=== PATIENT | male | born 1985 | race Caucasian/White ===

== ENCOUNTER → 2018-06-02 10:05 | Outpatient (CLI) | payer OTHER, SELFPAY ==
[2018-06-02 11:07] LABS: Absolute Lymphocyte Count 1.65 X10^3/ul (0.83-4.51); Absolute Neutrophil Count 2.6 X10^3/uL (2.0-7.7); Basophil# 0.01 X10^3/uL; Basophil% 0.2 % (0-1); Eosinophil# 0.09 X10^3/uL; Eosinophils% 1.9 % (0-5); Hematocrit 44.4 % (40-54); Hemoglobin 15.7 g/dl (13.0-16.5); Lymphocyte # 1.65 X10^3/ul (4.0); Lymphocyte % 35.6 % (19-41); Mean Corp Hgb Conc 35.4 g/gl (32-36); Mean Corpuscular Volume 84.7 fL (80-94); Mean Platelet Vol. 10.8 fl (6.2-12.0); Monocyte# 0.33 X10^3/uL; Monocyte% 7.1 % (0-10); Neutrophil # 2.55 X10^3/uL (2.7-7.7); Platelet Count 213 K/mm3 (150-450); RBC Distribution Width CV 12.3 % (11.6-14.6); RBC Distribution Width SD 37.5 fl (35.1-43.9); Red Blood Count 5.24 M/mm3 (4.6-6.2); White Blood Count 4.6 K/mm3 (4.4-11.0)
[2018-06-02 11:10] LABS: POSITIVE COUNT NO; POSITIVE DIFFERENTIAL NO; POSITIVE MORPHOLOGY NO
[2018-06-02 11:50] LABS: ALB/GLOB Ratio 1.4 RATIO (0.9-2.4); AST(SGOT) 25 U/L (15-37); Alanine Aminotransfer ALT/SGPT 36 U/L (16-61); Alkaline Phosphatase 60 U/L (45-117); Anion Gap 7 (5-15); BUN 20 mg/dL (7-18); BUN/Creat Ratio 16.4 RATIO (10-20); Calcium,Total 8.5 mg/dL (8.5-10.1); Chloride 108 mmol/L (98-107); Creatinine, Serum 1.22 mg/dL (0.70-1.30); EST Glomerular Filtration Rate 73 mL/min (>60); Est Glom Filt Rate - Afr Amer 89 mL/min (>60); Free T3 3.1 pg/mL (2.18-3.98); Globulin 2.9 g/dL (2.2-4.2); Glucose 91 mg/dL (74-106); PSA,Total - Annual Screen 0.34 ng/mL (0.00-4.00); Protein, Total 6.9 g/dL (6.4-8.2); Sodium Level 142 mmol/L (136-145); T4 Free Direct 1.01 ng/dL (0.76-1.46); Thyroid Stim Hormone (TSH) 1.53 uIU/mL (0.358-3.74)
[2018-06-06 13:57] LABS: Testosterone, Free 14.36 ng/dL (5.00-21.00)
[2018-06-07 08:48] LABS: Testosterone, % Free 2.56 % (1.50-4.20); Testosterone, Total 561 ng/dL (264-916)
[2018-06-12 09:18] LABS: HIV-1 RNA by PCR, Quant. < 20 copies/mL (.)
== END ==
PROVIDERS: Internal Medicine Endocrinology, Diabetes & Metabolism; Family Provider Family Medicine; PCP Family Medicine; Visit Provider Internal Medicine Infectious Disease
DX: Z77.21 Contact with and (suspected) exposure to potentially hazardous body fluids (principal); E04.2 Nontoxic multinodular goiter; E23.0 Hypopituitarism; Z12.5 Encounter for screening for malignant neoplasm of prostate
CPT/HCPCS: 36415; 80053; 84153; 84402; 84403; 84439; 84443; 84481; 85025; 87536; G0103

== ENCOUNTER → 2018-12-02 11:38 | Outpatient (CLI) | payer OTHER, SELFPAY ==
[2018-12-02 12:23] LABS: Absolute Lymphocyte Count 1.99 X10^3/ul (0.83-4.51); Absolute Neutrophil Count 2.8 X10^3/uL (2.0-7.7); Basophil# 0.01 X10^3/uL; Basophil% 0.2 % (0-1); Eosinophil# 0.17 X10^3/uL; Hematocrit 46.3 % (40-54); Hemoglobin 16.4 g/dl (13.0-16.5); Lymphocyte # 1.99 X10^3/ul (4.0); Lymphocyte % 35.7 % (19-41); Mean Corp Hgb Conc 35.4 g/gl (32-36); Mean Corpuscular Hgb 29.7 pg (27.0-32.0); Mean Corpuscular Volume 83.9 fL (80-94); Mean Platelet Vol. 10.4 fl (6.2-12.0); Monocyte# 0.58 X10^3/uL; Monocyte% 10.4 % (0-10); Neutrophil # 2.82 X10^3/uL (2.7-7.7); Neutrophil % 50.5 % (47-70); Platelet Count 232 K/mm3 (150-450); RBC Distribution Width CV 12.5 % (11.6-14.6); RBC Distribution Width SD 38.1 fl (35.1-43.9); Red Blood Count 5.52 M/mm3 (4.6-6.2); White Blood Count 5.6 K/mm3 (4.4-11.0)
[2018-12-02 12:25] LABS: POSITIVE COUNT NO; POSITIVE DIFFERENTIAL NO; POSITIVE MORPHOLOGY NO
[2018-12-02 13:13] LABS: ALB/GLOB Ratio 1.2 RATIO (0.9-2.4); AST(SGOT) 30 U/L (15-37); Alanine Aminotransfer ALT/SGPT 47 U/L (16-61); Alkaline Phosphatase 74 U/L (45-117); Anion Gap 8 (5-15); BUN 18 mg/dL (7-18); BUN/Creat Ratio 13.6 RATIO (10-20); Chloride 106 mmol/L (98-107); Creatinine, Serum 1.32 mg/dL (0.70-1.30); EST Glomerular Filtration Rate 67 mL/min (>60); Est Glom Filt Rate - Afr Amer 81 mL/min (>60); Free T3 3.2 pg/mL (2.18-3.98); Globulin 3.3 g/dL (2.2-4.2); Glucose 88 mg/dL (74-106); PSA,Total - Annual Screen 0.37 ng/mL (0.00-4.00); Protein, Total 7.3 g/dL (6.4-8.2); Sodium Level 141 mmol/L (136-145); T4 Free Direct 1.05 ng/dL (0.76-1.46); Thyroid Stim Hormone (TSH) 2.38 uIU/mL (0.358-3.74)
[2018-12-05 12:46] LABS: Testosterone, % Free 3.59 % (1.50-4.20); Testosterone, Total 479 ng/dL (264-916)
--- OUTSIDE RECORDS SUMMARY | 2019-02-06 03:11 | XMS RPT_ITS ---
:1985 Author Organization OHIP Care Team Providers Name Role Phone Robbi Mckeon Attending Unavailable Joaquín Conklin Primary [facility] Unavailable Tamika Mcgowan Attending Unavailable Joaquín Conklin [facility] Unavailable Raghunathan, Bhavani N. Attending Unavailable Ragadeel, Bhavani N. Referring Unavailable Rubin, Joaquín Primary Care Unavailable Rubin, Joaquín Primary Care Unavailable Stew Bazano Attending Unavailable Joaquín Raman Attending Unavailable Joaquín Raman Referring Unavailable Rubin, Joaquín Primary Care Unavailable Raghunathan, Bhavani N. Consulting Unavailable ASSESSMENT, HEALTH RISK Attending Unavailable Rubin, Joaquín Primary Care Unavailable ASSESSMENT, HEALTH RISK Attending Unavailable Rubin, Joaquín Primary Care Unavailable DR. 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 [facility] E23.0(ICD-10) Hospital Repository 06/02/2018 Unknown Z77.21 - Contact with Danisha, Katharina Nelson and (suspected) [facility] exposure to Hospital potentially hazardous Repository body fluids / Z77.21(ICD-10) PROCEDURES PROCEDURES No Procedure Records FoundRESULTS RESULTS HEPATITIS C,RNA PCR Collected: 12/02/2018 Status: F Source: [facility] VIRAL LOAD 11:44 AM [facility] REPOSITORY TYPE CODE TESTS RESULT OUT OF RANGE REFERENCE UNITS LAB L7000.7100 . IU/mL HCV Normal HCV Not Detected QT PCR LAB L7000.7350 . Test Normal HCV not performed log 10 LAB L7000.7500 . Normal TEST Comment INFO: Result Comment: The quantitative range of this assay is 15 IU/mL to 100 million IU/mL. Performed at: - [facility] [id number] [employer] Rental Clerk: Rachel Werner MD, Phone: [phone] Performed By: #### L7000.7000 #### [facility] (refer to report for specific site) refer to report for address and phone number CBC W/DIFF, AUTOMATED Collected: 12/02/2018 Status: F Source: [facility] 11:43 AM [facility] REPOSITORY TYPE CODE TESTS RESULT OUT OF RANGE REFERENCE UNITS LAB L100.1000 4.4-11.0 K/mm3 Normal WBC 5.6 LAB L100.1200 4.6-6.2 M/mm3 Normal RBC 5.52 LAB L100.1300 13.0-16.5 g/dl Normal HGB 16.4 LAB L100.1400 40-54 % Normal HCT 46.3 LAB L100.1500 80-94 fL Normal MCV 83.9 LAB L100.1600 27.0-32.0 pg Normal MCH 29.7 LAB L100.1700 32-36 g/gl Normal MCHC 35.4 LAB L100.1810 11.6-14.6 % Normal RDW CV 12.5 LAB L100.1820 35.1-43.9 fl Normal RDW SD 38.1 LAB L100.1900 150-450 K/mm3 Normal PLT 232 LAB L100.2000 6.2-12.0 fl Normal MPV 10.4 LAB L100.2100 47-70 % Normal NEUT% 50.5 LAB L100.2200 19-41 % Normal LY% 35.7 LAB L100.2300 0-10 % High MONO% 10.4 LAB L100.2400 0-5 % Normal EO% 3.0 LAB L100.2500 0-1 % Normal BASO% 0.2 LAB L100.2550 0.0-0.9 % Normal IM GRAN % 0.200 Result Comment: IG% - Immature Granulocytes (promyelocytes, myelocytes and metamyelocytes) > 1% indicates that a LEFT SHIFT is Present. LAB L100.2620 2.0-7.7 X10 3/uL Normal Absolute Neut 2.8 LAB L100.2720 0.83-4.51 X10 3/ul Normal Absolute Lymph 1.99 Performed By: #### L100.0100 #### [facility] [address] [place], [address] COMPREHENSIVE METABOLIC Collected: 12/02/2018 Status: F Source: [facility] 11:43 AM [facility] REPOSITORY Order Comment: Has Patient had X-rays with Contrast this admission? N TYPE CODE TESTS RESULT OUT OF RANGE REFERENCE UNITS LAB L501.0100 74-106 mg/dL Normal GLU 88 Result Comment: Please note revised GLUCOSE reference range effective 2017. LAB L501.1000 7-18 mg/dL Normal BUN 18 LAB L501.1100 0.70-1.30 mg/dL High CREAT,SERUM 1.32 Result Comment: The validity of the calculated GFR AND GFRAA in patients over 70 years has not been determined. Clinical correlation is essential. LAB L501.1110 >60 mL/min Normal EST GFR 67 Result Comment: Non- GFR Calc LAB L501.1115 >60 mL/min Normal EST GFR - AA 81 Result Comment: GFR Calc LAB L501.1300 10-20 RATIO Normal BUN/CRE 13.6 LAB L501.1500 6.4-8.2 g/dL T Normal PROT 7.3 LAB L501.1800 3.2-5.0 g/dL Normal ALB 4.0 LAB L501.1950 2.2-4.2 g/dL Normal GLOB 3.3 LAB L501.2000 0.9-2.4 RATIO Normal A/G 1.2 LAB L501.2200 8.5-10.1 mg/dL CA Normal 9.0 LAB L501.4100 15-37 U/L Normal AST 30 LAB L501.4305 45-117 U/L Normal ALK P 74 LAB L501.4405 16-61 U/L Normal ALT 47 LAB L501.4600 0.20-1.00 mg/dL T Normal BILI 0.70 LAB L501.5300 136-145 mmol/L NA Normal 141 LAB L501.5600 3.5-5.1 mmol/L K Normal 4.0 LAB L501.5900 98-107 mmol/L CL Normal 106 LAB L501.6100 21.0-32.0 mmol/L Normal CO2 27.0 LAB L501.6200 5-15 Normal GAP 8 Performed By: #### L500.4050, L501.87786, L501.9520, L501.9910, L506.0400 #### [facility] [address] [place], [place], [address] FREE T3 Collected: 12/02/2018 Status: F Source: [facility] 11:43 AM [facility] REPOSITORY Order Comment: Has Patient had X-rays with Contrast this admission? N TYPE CODE TESTS RESULT OUT OF RANGE REFERENCE UNITS LAB L501.77090 2.18-3.98 pg/mL Normal FREE T3 3.2 Performed By: #### L500.4050, L501.06780, L501.9520, L501.9910, L506.0400 #### [facility] [address] [place], [address] THYROID STIM HORMONE Collected: 12/02/2018 Status: F Source: [facility] (TSH) 11:43 AM [facility] REPOSITORY Order Comment: Has Patient had X-rays with Contrast this admission? N TYPE CODE TESTS RESULT OUT OF RANGE REFERENCE UNITS LAB L501.9520 0.358-3.74 uIU/mL Normal TSH 2.38 Performed By: #### L500.4050, L501.92911, L501.9520, L501.9910, L506.0400 #### [facility] [address] [place], [place], [id number] PSA,TOTAL - ANNUAL Collected: 12/02/2018 Status: F Source: [facility] SCREEN 11:43 AM [facility] REPOSITORY Order Comment: Has Patient had X-rays with Contrast this admission? N TYPE CODE TESTS RESULT OUT OF RANGE REFERENCE UNITS LAB L501.9910 0.00-4.00 ng/mL Normal PSA,TOT 0.37 SCREEN Result Comment: This test was performed using the TPSA assay method for the Rivono chemistry system. Values obtained with different assay methods cannot be used interchangably. When changing PSA assays in the course of monitoring a patient, additional sequential testing should be carried out to confirm baseline values. Performed By: #### L500.4050, L501.51514, L501.9520, L501.9910, L506.0400 #### [facility] [address] [place], [address] T4 FREE DIRECT Collected: 12/02/2018 Status: F Source: [facility] 11:43 AM [facility] REPOSITORY Order Comment: Has Patient had X-rays with Contrast this admission? N TYPE CODE TESTS RESULT OUT OF RANGE REFERENCE UNITS LAB L506.0400 0.76-1.46 ng/dL Normal T4 FREE 1.05 DIRECT Performed By: #### L500.4050, L501.34425, L501.9520, L501.9910, L506.0400 #### [facility] [address] [place], [address] TESTOSTERONE, TOTAL / Collected: 12/02/2018 Status: F Source: [facility] FREE 11:43 AM [facility] REPOSITORY Order Comment: Has Patient had X-rays with Contrast this admission? N TYPE CODE TESTS RESULT OUT OF RANGE REFERENCE UNITS LAB L3100.5320 264-916 ng/dL Normal 479 TESTOSTER,TO SHA Result Comment: Adult male reference interval is based on a population of healthy nonobese males (BMI <30) between 19 and 39 years old. Maria Teresa et.al. JCEM 2017,102;8446-4560. PMID: [id number]. LAB L3100.5340 5.00-21.00 ng/dL TESTOSTER,FREE Normal 17.20 LAB L3100.5360 1.50-4.20 % TESTOSTER %FREE Normal 3.59 Result Comment: Performed at: - [facility] [address] [id number] [employer] Visual Equipment Rental Clerk: Arnoldo Sagastume PhD, Phone: [phone] Performed at: [facility] [id number] [employer] Rental Clerk: Rachel Werner MD, Phone: [phone] Performed By: #### L3100.5310 #### [facility] (refer to report for specific site) refer to report for address and phone number FINAL SURGICAL Observed: 10/05/2018 Status: F Source: [facility] PATHOLOGY REPORT 11:29 AM [facility] REPOSITORY . Pathology Reports Accession: Collected Date/Time: Received Date/Time: Pathologist: [id number] 10/05/2018 11:29 EST 10/06/2018 09:07 MD MARIANNA ZHONG Final Surgical Pathology Report DIAGNOSIS: DISTAL ESOPHAGUS, BIOPSY -- SQUAMOUS ESOPHAGEAL MUCOSA WITH NO HISTOPATHOLOGIC CHANGES. COMMENT: KEN Roche#[id number] CLINICAL INFORMATION: Procedure: EGD with biopsy distal esophagus Preoperative diagnosis: esophageal stricture Postoperative diagnosis: same, chronic reflux SPECIMEN: A ARGENIS BX- DISTAL ESOPHAGUS - CHRONIC REFLUX GROSS DESCRIPTION: Received in formalin labeled distal esophagus biopsy are 2 semi translucent white tissue fragments, 0.3 and 0.4 cm. TS -1 Dictated by Radha HA ([facility]) MICROSCOPIC DESCRIPTION: Slides reviewed. Electronically Signed by Pathology Report verified by [facility] Electronically signed by MARIANNA JI MD Sign out Date: 10/08/2018 14:29 Performing Lab: [facility], [address] [place] [address] [place] Performed By: #### SPFR #### [place] [address] ESTABLISHED VISIT Observed: 10/04/2018 Status: UNK Source: [facility] ([facility]) 3:59 PM [facility]OS[facility] REPOSITORY Chief Complaint Chronic gastroesophageal reflux disease History of Present Illness 32-year-old male presents to undergo upper endoscopy regarding chronic reflux Review of Systems Gen.: Denies fever or weight loss Cardiovascular: Denies chest pain or palpitations Pulmonary: Denies shortness of breath or coughing Gastrointestinal: Denies present abdominal pain or distention 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) Obesity (278.00) (E66.9) Past Medical History History of gastroesophageal reflux (GERD) (V12.79) (Z87.19) Surgical History Denied: History of Colonoscopy [facility] History of Esophagogastroduodenoscopy With Biopsy [id number] Family History Family history of depression (V17.0) (Z81.8) Family history of osteoarthritis (V17.89) (Z82.69) No pertinent family history Denied: Family history of colon cancer Social History Daily caffeine consumption 1 CUP PER DAY History of body piercing (V45.89) (Z98.890) EARS Denied: History of tattoo Never smoked cigarettes (V49.89) (Z78.9) No illicit drug use Rarely consumes alcohol (V49.89) (Z78.9) Allergies No Known Drug Allergies Recorded By: Bernard Sanchez; 08/11/2018 7:37:14 AM Current Meds PriLOSEC 40 MG CPDR (Omeprazole); TAKE 1 CAPSULE ONCE DAILY; Therapy: (Recorded:54Mdb0123) to Recorded Dispense: 0 Days ; #: Sufficient Capsule Delayed Release; Refill: 0;For: Gastroesophageal reflux disease with esophagitis; SHADI = N; Record; Last Updated By: Jazmyn Sims; 08/11/2018 10:21:00 AM Testosterone Cypionate 100 MG/ML Intramuscular Solution; Therapy: (Recorded:35Jcj5549) to Recorded Dispense: 0 Days ; #: Sufficient ML; Refill: 0; SHADI = N; Record; Last Updated By: Annamarie Grayson; 08/11/2018 8:40:59 AM Physical Exam Gen.: Awake and oriented Cardiovascular: Regular without murmur Pulmonary: Clear anteriorly Abdomen: Soft, nondistended Provider Impressions Impression: Chronic reflux Recommendations Upper endoscopy is recommended. The procedure and sedation were discussed including but not limited to risk of bleeding, perforation and reaction to medication. The office endoscopy forms were reviewed and signed. The patient was instructed to bring someone to drive home after the test. All the patient's questions were answered. Signatures Electronically signed by : Daksha Whitehead DO; Oct 04 2018 3:59PM EST (Author) INITIAL VISIT Observed: 08/11/2018 Status: UNK Source: [place] (GASTROENTEROLOGY) 10:29 AM HOSPITALS REPOSITORY Chief Complaint Chronic GERD History of Present Illness 32-year-old male presents today referred by Shannon Colon NP for chronic reflux. Patient reports chronic heartburn for 5+ years. He was previously taking Protonix 20 mg once daily and discontinued thi s and began taking Prilosec 40 mg daily roughly 3 years ago. EGD in 2012 revealed reflux esophagitis but no evidence of Puente's esophagus. Family history is significant for esophageal cancer. Patient has seen an ENT specialist several times, most recently 6 months ago, and has undergone 2-3 laryngoscopies ; each of these revealing visible upper esophageal irritation. Patient states that the Prilosec controls his heartburn and he has attempted to taper off of this in the past with a quick return of symptoms. He denies dysphagia or odynophagia but does describe a globus pharyngeus located in his upp er esophagus. This is constant but typically worsened after eating or taking his medications. He states that he had a modified barium swallow as well as a barium esophagram earlier this year at [facility]. Per patient, these both were normal. He does report feeling full very quickly and states that it feels as though his stomach is not emptying. He explains that he will still feel full in the mo rning when he wakes up. He denies nausea, vomiting, or a decrease in appetite. Patient was previously taking dicyclomine 20 mg as needed for bowel spasm but is no longer taking this as he is no longer e xperiencing abdominal discomfort. He states that his are regular and unchanged without evidence of blood. Review of Systems Const: Reports fatigue but denies fever and weight loss. CV: Denies chest pain, pacemaker, palpitations and valvular heart disease. Resp: Denies cough, sleep apnea, SOB and snoring. GI: Denies symptoms other than stated above. Musculo: Denies joint pain and muscle pain. Skin: Denies hives and rash. Neuro: Denies seizures and stroke. Psych: Denies anxiety and depression. Endocrine: Denies intolerance to cold, hot flashes and impaired glucose tolerance. Viktor/Lymph: Denies anemia, blood transfusions, chemotherapy, enlarged lymph nodes and radiation treatment of any kind. 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) Obesity (278.00) (E66.9) Past Medical History History of gastroesophageal reflux (GERD) (V12.79) (Z87.19) Surgical History Denied: History of Colonoscopy [facility] History of Esophagogastroduodenoscopy With Biopsy [id number] Family History Family history of depression (V17.0) (Z81.8) Family history of osteoarthritis (V17.89) (Z82.69) No pertinent family history Denied: Family history of colon cancer Social History Daily caffeine consumption 1 CUP PER DAY History of body piercing (V45.89) (Z98.890) EARS Denied: History of tattoo Never smoked cigarettes (V49.89) (Z78.9) No illicit drug use Rarely consumes alcohol (V49.89) (Z78.9) Allergies No Known Drug Allergies Recorded By: Bernard Sanchez; 08/11/2018 7:37:14 AM Current Meds PriLOSEC 40 MG CPDR; TAKE 1 CAPSULE ONCE DAILY; Therapy: (Recorded:93Zsq0049) to Recorded Dispense: 0 Days ; #: Sufficient Capsule Delayed Release; Refill: 0;For: Gastroesophageal reflux disease with esophagitis; SHADI = N; Record; Last Updated By: Jazmyn Sims; 08/11/2018 10:21:00 AM Testosterone Cypionate 100 MG/ML Intramuscular Solution; Therapy: (Recorded:11Aug2018) to Recorded Dispense: 0 Days ; #: Sufficient ML; Refill: 0; SHADI = N; Record; Last Updated By: Annamarie Grayson; 08/11/2018 8:40:59 AM Vitals Vital Signs Recorded: 11Aug2018 08:51AM Heart Rate80 Sknxjixx447 Selmmazyh77 Height5 ft 11 in Ixvaeg480 lb BMI Xvmrfbktpc49.75 BSA Calculated2.29 Physical Exam Const: Vital signs reviewed. ENMT: Oral mucosa moist with no thrush and no mucositis. Neck: Supple and symmetric. Thyroid is normal in size and texture. Resp: Respiration rate is normal. Clear to auscultation. CV: Rhythm is regular. No heart murmur appreciated. Carotids 2+ and equal bilaterally, without bruits. Femorals 2+ and equal bilaterally, without bruits. Abdomen: Positive bowel sounds in all quadrants. No bruits. Normal to percussion. Palpation of the abdomen reveals softness but no tenderness, distension or fluid wave. No abdominal masses. No hernias. No palpable hepatosplenomegaly. Anus/Perineum/Rectum: Exam deferred. Lymph: No visible or palpable cervical lymphadenopathy. Inguinal nodes not palpable. Skin: Dry and warm with no nodularity or rash. Psych: Affect is normal. Alert and oriented x3. Neuro: Cranial nerves intact. No focal motor defects. Results/Data 1. EGD 10/03/13: Normal esophagus, stomach, duodenum. Biopsy suggestive of reflux esophagitis but no evidence of Puente's esophagus. Negative CLOtest. 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) Gastroesophageal reflux disease with esophagitis (530.11) (K21.0) Early satiety (780.94) (R68.81) Orders Gastroesophageal reflux disease with esophagitis Continue: PriLOSEC 40 MG CPDR (Omeprazole); TAKE 1 CAPSULE ONCE DAILY Dispense: 0 Days ; #: Sufficient Capsule Delayed Release; Refill: 0;For: Gastroesophageal reflux disease with esophagitis; SHADI = N; Record; Last Updated By: Jazmyn Sims; 08/11/2018 10:21:00 AM Endoscopy - Upper GI; Status:Hold For - Scheduling; Requested for:[id number]; Perform:Non Facility; Due:19Fdc0681;Ordered; Stat; For:Gastroesophageal reflux disease with esophagitis; Ordered By:Jazmyn Sims; GI Mental Competence : Yes-pt mentally competent to provide consent EGD/Sigmoid Indications : Persistent or recurrent GERD Patient Discussion/Summary 1. Continue Prilosec 40 mg once daily for GERD. Lifestyle changes to help alleviate heartburn/reflux were discussed. These include avoiding spicy and greasy foods, tomato based products, mint and caffei ne. Alcohol and smoking should be avoided. Patient should keep at least 3 hours between eating and going to sleep. Being of a normal weight helps decrease heartburn symptoms. 2. The evaluation of a patient with long-standing heartburn and reflux symptoms was discussed, and an upper endoscopy exam was recommended. The procedure and sedation were discussed including but not li mited to risks of bleeding, perforation, and reaction to medication including cardiopulmonary events. The office endoscopy forms were reviewed and signed. The patient was instructed on not being able to drive the day of the exam after being sedated. All of the patients questions were answered. 3. The patient appears medically stable for sedation and endoscopy. 4. A healthy, low fat diet and regular exercise is recommended for weight reduction. 5. Will obtain barium esophagram and modified barium swallow from [facility]. End of Encounter Meds PriLOSEC 40 MG CPDR (Omeprazole); TAKE 1 CAPSULE ONCE DAILY; Therapy: (Recorded:71Lit2645) to Recorded Testosterone Cypionate 100 MG/ML Intramuscular Solution; Therapy: (Recorded:76Oox1635) to Recorded Signatures Electronically signed by : Jazmyn Sims PA-C; Aug 11 2018 10:29AM EST (Author) CBC W/DIFF, AUTOMATED Collected: 06/02/2018 Status: F Source: [place] 10:24 AM [facility] REPOSITORY Order Comment: HAS EMP LABS BEING DONE TOO TYPE CODE TESTS RESULT OUT OF RANGE REFERENCE UNITS LAB L100.1000 4.4-11.0 K/mm3 Normal WBC 4.6 LAB L100.1200 4.6-6.2 M/mm3 Normal RBC 5.24 LAB L100.1300 13.0-16.5 g/dl Normal HGB 15.7 LAB L100.1400 40-54 % Normal HCT 44.4 LAB L100.1500 80-94 fL Normal MCV 84.7 LAB L100.1600 27.0-32.0 pg Normal MCH 30.0 LAB L100.1700 32-36 g/gl Normal MCHC 35.4 LAB L100.1810 11.6-14.6 % Normal RDW CV 12.3 LAB L100.1820 35.1-43.9 fl Normal RDW SD 37.5 LAB L100.1900 150-450 K/mm3 Normal PLT 213 LAB L100.2000 6.2-12.0 fl Normal MPV 10.8 LAB L100.2100 47-70 % Normal NEUT% 55.0 LAB L100.2200 19-41 % Normal LY% 35.6 LAB L100.2300 0-10 % Normal MONO% 7.1 LAB L100.2400 0-5 % Normal EO% 1.9 LAB L100.2500 0-1 % Normal BASO% 0.2 LAB L100.2550 0.0-0.9 % Normal IM GRAN % 0.200 Result Comment: IG% - Immature Granulocytes (promyelocytes, myelocytes and metamyelocytes) > 1% indicates that a LEFT SHIFT is Present. LAB L100.2620 2.0-7.7 X10 3/uL Normal Absolute Neut 2.6 LAB L100.2720 0.83-4.51 X10 3/ul Normal Absolute Lymph 1.65 Performed By: #### L100.0100 #### [facility] [address] [place], [address] COMPREHENSIVE METABOLIC Collected: 06/02/2018 Status: F Source: [facility] 10:24 AM [facility] REPOSITORY Order Comment: HAS EMP LABS BEING DONE TOO Has Patient had X-rays with Contrast this admission? N TYPE CODE TESTS RESULT OUT OF RANGE REFERENCE UNITS LAB L501.0100 74-106 mg/dL Normal GLU 91 Result Comment: Please note revised GLUCOSE reference range effective 2017. LAB L501.1000 7-18 mg/dL High BUN 20 LAB L501.1100 0.70-1.30 mg/dL Normal CREAT,SERUM 1.22 Result Comment: The validity of the calculated GFR AND GFRAA in patients over 70 years has not been determined. Clinical correlation is essential. LAB L501.1110 >60 mL/min Normal EST GFR 73 Result Comment: Non- GFR Calc LAB L501.1115 >60 mL/min Normal EST GFR - AA 89 Result Comment: GFR Calc LAB L501.1300 10-20 RATIO Normal BUN/CRE 16.4 LAB L501.1500 6.4-8.2 g/dL T Normal PROT 6.9 LAB L501.1800 3.2-5.0 g/dL Normal ALB 4.0 LAB L501.1950 2.2-4.2 g/dL Normal GLOB 2.9 LAB L501.2000 0.9-2.4 RATIO Normal A/G 1.4 LAB L501.2200 8.5-10.1 mg/dL CA Normal 8.5 LAB L501.4100 15-37 U/L Normal AST 25 LAB L501.4305 45-117 U/L Normal ALK P 60 LAB L501.4405 16-61 U/L Normal ALT 36 LAB L501.4600 0.20-1.00 mg/dL T Normal BILI 0.70 LAB L501.5300 136-145 mmol/L NA Normal 142 LAB L501.5600 3.5-5.1 mmol/L K Normal 4.0 LAB L501.5900 98-107 mmol/L High CL 108 LAB L501.6100 21.0-32.0 mmol/L Normal CO2 27.0 LAB L501.6200 5-15 Normal GAP 7 Performed By: #### L500.4050, L501.93341, L501.9520, L501.9910, L506.0400 #### [facility] [address] [place], [place], [address] FREE T3 Collected: 06/02/2018 Status: F Source: [facility] 10:24 AM [facility] REPOSITORY Order Comment: HAS EMP LABS BEING DONE TOO Has Patient had X-rays with Contrast this admission? N TYPE CODE TESTS RESULT OUT OF RANGE REFERENCE UNITS LAB L501.83694 2.18-3.98 pg/mL Normal FREE T3 3.1 Performed By: #### L500.4050, L501.15126, L501.9520, L501.9910, L506.0400 #### [facility] [address] [place], [address] THYROID STIM HORMONE Collected: 06/02/2018 Status: F Source: [facility] ([facility]) 10:24 AM [facility] REPOSITORY Order Comment: HAS EMP LABS BEING DONE TOO Has Patient had X-rays with Contrast this admission? N TYPE CODE TESTS RESULT OUT OF RANGE REFERENCE UNITS LAB L501.9520 0.358-3.74 uIU/mL Normal TSH 1.53 Performed By: #### L500.4050, L501.06233, L501.9520, L501.9910, L506.0400 #### [facility] [address] [place], [place], [id number] PSA,TOTAL - ANNUAL Collected: 06/02/2018 Status: F Source: [facility] SCREEN 10:24 AM [facility] REPOSITORY Order Comment: HAS EMP LABS BEING DONE TOO Has Patient had X-rays with Contrast this admission? N TYPE CODE TESTS RESULT OUT OF RANGE REFERENCE UNITS LAB L501.9910 0.00-4.00 ng/mL Normal PSA,TOT 0.34 SCREEN Result Comment: This test was performed using the TPSA assay method for the Rivono chemistry system. Values obtained with different assay methods cannot be used interchangably. When changing PSA assays in the course of monitoring a patient, additional sequential testing should be carried out to confirm baseline values. Performed By: #### L500.4050, L501.27125, L501.9520, L501.9910, L506.0400 #### [facility] [address] [place], [address] T4 FREE DIRECT Collected: 06/02/2018 Status: F Source: [facility] 10:24 AM [facility] REPOSITORY Order Comment: HAS EMP LABS BEING DONE TOO Has Patient had X-rays with Contrast this admission? N TYPE CODE TESTS RESULT OUT OF RANGE REFERENCE UNITS LAB L506.0400 0.76-1.46 ng/dL Normal T4 FREE 1.01 DIRECT Performed By: #### L500.4050, L501.14504, L501.9520, L501.9910, L506.0400 #### [facility] [place], [address] TESTOSTERONE, TOTAL / Collected: 06/02/2018 Status: F Source: OMAR FREE 10:24 AM [facility] REPOSITORY Order Comment: HAS EMP LABS BEING DONE TOO Has Patient had X-rays with Contrast this admission? N TYPE CODE TESTS RESULT OUT OF RANGE REFERENCE UNITS LAB L3100.5320 264-916 ng/dL Normal 561 TESTOSTER,TO SHA Result Comment: Adult male reference interval is based on a population of healthy nonobese males (BMI <30) between 19 and 39 years old. praveen Morel.al. JCEM 2017,102;6588-4112. PMID: [id number]. LAB L3100.5340 5.00-21.00 ng/dL TESTOSTER,FREE Normal 14.36 LAB L3100.5360 1.50-4.20 % TESTOSTER %FREE Normal 2.56 Result Comment: Performed at: - [facility] [address] [id number] Audio Visual Equipment Rental Clerk: Arnoldo Sagastume PhD, Phone: [phone] Performed at: - [facility] [address] [id number] Audio Visual Equipment Rental Clerk: Edward Urena MD, Phone: [phone] Performed By: #### L3100.5310 #### [facility] (refer to report for specific site) refer to report for address and phone number CBC, EMPLOYEE Collected: 06/02/2018 Status: F Source: OMAR 10:22 AM [facility] REPOSITORY TYPE CODE TESTS RESULT OUT OF RANGE REFERENCE UNITS LAB L100.1000 4.4-11.0 K/mm3 Normal WBC 4.7 LAB L100.1200 4.6-6.2 M/mm3 Normal RBC 5.23 LAB L100.1300 13.0-16.5 g/dl Normal HGB 15.7 LAB L100.1400 40-54 % Normal HCT 44.3 LAB L100.1500 80-94 fL Normal MCV 84.7 LAB L100.1600 27.0-32.0 pg Normal MCH 30.0 LAB L100.1700 32-36 g/gl Normal MCHC 35.4 LAB L100.1810 11.6-14.6 % Normal RDW CV 12.3 LAB L100.1820 35.1-43.9 fl Normal RDW SD 37.7 LAB L100.1900 150-450 K/mm3 Normal PLT 207 LAB L100.2000 6.2-12.0 fl Normal MPV 10.5 LAB L100.2110 47-70 % Normal NEUT% 55.1 LAB L100.2210 19-41 % Normal LY% 37.0 LAB L100.2310 0-10 % Normal MONO% 6.2 LAB L100.2410 0-5 % Normal EO% 1.3 LAB L100.2510 0-1 % Normal BASO% 0.2 LAB L100.2620 2.0-7.7 X10 3/uL Normal Absolute Neut 2.6 LAB L100.2720 0.83-4.51 X10 3/ul Normal Absolute Lymph 1.72 Performed By: #### L100.0200 #### [facility] [address] [place], [place], [address] URINALYSIS, EMPLOYEE Collected: 06/02/2018 Status: F Source: BROCTON 10:22 AM [facility] REPOSITORY TYPE CODE TESTS RESULT OUT OF RANGE REFERENCE UNITS LAB L400.3000 Yellow COLOR Normal Yellow LAB L400.3050 Clear Normal CLARITY Clear LAB L400.3200 Normal mg/dl Normal GLUCOSE, UR Normal LAB L400.3300 Negative mg/dL Normal BILIRUBIN URINE Negative LAB L400.3400 Negative mg/dl Normal KETONE UR Negative LAB L400.3465 1.002-1.030 Normal SP.GR. DIPSTX 1.010 LAB L400.3550 5.0 - 8.0 pH UR Normal 7.0 LAB L400.3600 Negative mg/dl PROT Normal DIPSTX Negative LAB L400.3700 Normal mg/dl Normal UROBILI Normal LAB L400.3750 Negative Normal NITRITE UR Negative LAB L400.3780 Negative /ul Normal OCCULT BLOOD-UR Negative LAB L400.3800 Negative /ul High LEUK 25 ESTERASE Performed By: #### L400.0100 #### [facility] [address] [place], [address] NICOTINE URINE DRUG Collected: 06/02/2018 Status: F Source: OMAR SCREEN 10:22 AM [facility] REPOSITORY TYPE CODE TESTS RESULT OUT OF RANGE REFERENCE UNITS LAB L505.6250 TO BE Normal CONFIRMED Result Comment: CONFIRMATORY TESTING FOR ALL POSITIVE URINE DRUG SCREEN RESULTS WILL ONLY BE SENT OUT UPON PHYSICIAN ORDER. The results of Urine Drug Screen methods provide only preliminary analytical test results. A more specific alternate chemical method must be used in order to obtain a confirmed analytical result. Gas chromatography/mass spectrometery (GC/MS) is the preferred confirmatory method. Clinical consideration and professional judgement should be applied to any drug of abuse test result, particularly when preliminary positive results are used. LAB L505.6270 <200 ng/mL Normal COT DRG Negative SCREEN Result Comment: Cotinine is the first-stage metabolite of Nicotine. Performed By: #### L505.6240 #### [facility] [address] [facility] [place], [address] EMPLOYEE PROFILE Collected: 06/02/2018 Status: F Source: OMAR 10:22 AM [facility] REPOSITORY TYPE CODE TESTS RESULT OUT OF RANGE REFERENCE UNITS LAB L501.0100 74-106 mg/dL Normal GLU 90 Result Comment: Please note revised GLUCOSE reference range effective 2017. LAB L501.1000 7-18 mg/dL Normal BUN 18 LAB L501.1100 0.70-1.30 mg/dL Normal CREAT,SERUM 1.19 Result Comment: The validity of the calculated GFR AND GFRAA in patients over 70 years has not been determined. Clinical correlation is essential. LAB L501.1110 >60 mL/min Normal EST GFR 76 Result Comment: Non- GFR Calc LAB L501.1115 >60 mL/min Normal EST GFR - AA 91 Result Comment: GFR Calc LAB L501.1300 10-20 RATIO Normal BUN/CRE 15.1 LAB L501.1400 3.5-7.2 mg/dL Normal URIC 7.2 Result Comment: The drugs N-Acetylcysteine and Metamizole may falsely depress this assay. LAB L501.1500 6.4-8.2 g/dL Normal T PROT 7.0 LAB L501.1800 3.2-5.0 g/dL Normal ALB 3.9 LAB L501.1950 2.2-4.2 g/dL Normal GLOB 3.1 LAB L501.2000 0.9-2.4 RATIO Normal A/G 1.3 LAB L501.2200 8.5-10.1 mg/dL Low CA 8.3 LAB L501.2300 2.5-4.9 mg/dL Low PHOS 2.2 LAB L501.4100 15-37 U/L Normal AST 26 LAB L501.4305 45-117 U/L Normal ALK P 59 LAB L501.4405 16-61 U/L Normal ALT 34 LAB L501.4600 0.20-1.00 mg/dL Normal T BILI 0.80 LAB L501.4700 0.00-0.30 mg/dL Normal D BILI 0.13 LAB L501.4900 200 mg/dL Normal CHOL 175 Result Comment: <200 mg/dL Desirable 200-240 mg/dL Borderline >240 mg/dL High Risk LAB L501.5000 mg/dL Normal TRIG 122 Result Comment: The drugs N-Acetylcysteine and Metamizole may falsely depress this assay. Serum Triglycerides Reference Interval Normal <150 mg/dL Borderline high 150 - 199 mg/dL High 200 - 499 mg/dL Very High > or = 500 mg/dL LAB L501.5300 136-145 mmol/L Normal NA 141 LAB L501.5600 3.5-5.1 mmol/L Normal K 4.0 LAB L501.5900 98-107 mmol/L Normal CL 107 LAB L501.6100 21.0-32.0 mmol/L Normal CO2 27.0 LAB L501.6200 5-15 Normal 7 GAP LAB L501.6400 mg/dL Low HDL 33 Result Comment: The drugs N-Acetylcysteine and Metamizole may falsely depress this assay. Reference Range HDL <40 mg/dL Low HDL Cholesterol HDL >or= 60 mg/dL High HDL Cholesterol LAB L501.6475 Normal CHOL:HDL 5.30 LAB L501.6500 0-130 mg/dL Normal LDL 118 LAB L501.6600 5-40 mg/dL Normal VLDL 24 LAB L504.2610 87-241 U/L Normal LDH 177 Performed By: #### L500.2900 #### [facility] [address] [place], [address] HEPATITIS C,RNA PCR Collected: 06/02/2018 Status: F Source: OMAR VIRAL LOAD 10:21 AM [facility] REPOSITORY TYPE CODE TESTS RESULT OUT OF RANGE REFERENCE UNITS LAB L7000.7100 . IU/mL HCV Normal HCV Not Detected QT PCR LAB L7000.7350 . Test Normal HCV not performed log 10 LAB L7000.7500 . Normal TEST Comment INFO: Result Comment: The quantitative range of this assay is 15 IU/mL to 100 million IU/mL. Performed at: - [facility] [id number] Audio Visual Equipment Rental Clerk: Edward Urena MD, Phone: [phone] Performed By: #### L7000.7000 #### [facility] (refer to report for specific site) refer to report for address and phone number HIV VIRAL LOAD Collected: 06/02/2018 Status: F Source: OMAR QUANT 10:19 AM [facility] REPOSITORY TYPE CODE TESTS RESULT OUT OF RANGE REFERENCE UNITS LAB L3890.4100 . copies/mL Normal HIV-1 < 20 RNA,QUANT Result Comment: HIV-1 RNA not detected The reportable range for this assay is 20 to 10,000,000 copies HIV-1 RNA/mL. LAB L3890.4200 . Normal Test not log10 performed HIV-1 RNA Result Comment: Result Units: wzg84ikjb/mL Unable to calculate result since non-numeric result obtained for component test. Performed at: - [facility] [id number] Audio Visual Equipment Rental Clerk: Edward Urena MD, Phone: [phone] Performed By: #### L3890.4000 #### [facility] (refer to report for specific site) refer to report for address and phone number EMERGENCY DEPARTMENT Observed: 05/17/2018 Status: F Source: OMAR SUMMARY 3:09 PM [facility] REPOSITORY [facility] Medical Records Department [address] [place] [address] Emergency Department Summary 05/12/18 1844 MR#: [id number] Acct: [id number] Name: JALEEL GAYLE Rep #: [id number] : 1985 32 From: Michael Bazan MD PCP: Joaquín Conklin MD Status: REG REF ADDENDUM by Brandy Flower MD on 05/17/18 at 1509 I was approached by Jaleel after he spoke with the infectious disease doctor. The infectious disease doctor is recommending HIV prophylaxis because the source is unknown. Patient will be written for [place] and Isentress per hospital policy. Date Brandy Flower MD cc: Joaquín oCnklin MD * Signed - ER Visit Summary Date of Service: 05/12/18 Chief Complaint: Needlestick thenar eminence right hand History of Present Illness: The patient is a 32 M who was stuck by use needle of unknown source. There is a collection of needles. [place] were not. He had an incident 4 days ago which required testing. He has no other complaints. Immunizations up-to-date. Hepatitis B series completed. Physical Examination: Puncture wound thenar eminence right hand bleeding is stopped. Median, radial ulnar function intact. Test Results: Blood panel for employee Emergency Department Course and Treatment: Follow-up with corporate care Treatment Plan: Follow-up corporate care Disposition: Discharge Impression: Needlestick thenar eminence right hand unknown source initial encounter This note was generated with [email or web address] dictation software. It may contain incorrect words, spelling, and punctuation that were not noted in review of the chart prior to signing ED Disposition - Plan for ED Patient: Disposition: Home or Assisted Living Chief Complaint: Occup Expose Instructions: ED Body Fluid Exp HC Worker Referrals: Joaquín Conklin MD [Primary Care Provider] - [facility] [GROUP OF PHYSICIANS] - What to do if you have Problems For any increased pain, shortness of breath, bleeding, nausea or vomiting, chest pain, or any unexpected problems, contact your Primary Care Provider. Call [facility] ([phone]) or report to the closest Emergency Room. Call 911 if necessary. 05/12/18 1846 <Electronically signed by Michael Bazan MD> Date Michael Duncanignflorentino Signature (If Indicated): Date CC: Joaquín Conklin MD HIV - [facility] Collected: 05/12/2018 Status: F Source: OMAR 6:43 PM [facility] REPOSITORY Order Comment: Has pt arrived? Y TYPE CODE TESTS RESULT OUT OF RANGE REFERENCE UNITS LAB L3890.6005 Nonreactive Normal HIV - [facility] Non-Reactive Performed By: #### L3890.6005 #### [facility] [address] [place], [address] HEPATITIS B SURFACE Collected: 05/12/2018 Status: F Source: OMAR AG 6:43 PM [facility] REPOSITORY Order Comment: Has pt arrived? Y TYPE CODE TESTS RESULT OUT OF RANGE REFERENCE UNITS LAB L3100.0400 Negative Normal HB Negative SURF AG Result Comment: Performed at: - [facility] [address] [id number] Audio Visual Equipment Rental Clerk: Arnoldo Sagastume PhD, Phone: [phone] Performed By: #### L3100.0390, L3100.0537, L3100.0625 #### [facility] (refer to report for specific site) refer to report for address and phone number HEP B SURFACE Collected: 05/12/2018 Status: F Source: OMAR ANTIBODIES EMP 6:43 PM [facility] REPOSITORY Order Comment: Has pt arrived? Y TYPE CODE TESTS RESULT OUT OF RANGE REFERENCE UNITS LAB L3100.0537 . Normal Hep B Reactive Alicia AB Result Comment: Non Reactive: Inconsistent with immunity, less than 10 mIU/mL Reactive: Consistent with immunity, greater than 9.9 mIU/mL Performed By: #### L3100.0390, L3100.0537, L3100.0625 #### [facility] (refer to report for specific site) refer to report for address and phone number HEPATITIS C ANTIBODIES Collected: 05/12/2018 Status: F Source: OMAR 6:43 PM [facility] REPOSITORY Order Comment: Has pt arrived? Y TYPE CODE TESTS RESULT OUT OF RANGE REFERENCE UNITS LAB L3100.0650 0.0-0.9 s/co ratio Normal HEP C AB <0.1 Result Comment: Negative: < 0.8 Indeterminate: 0.8 - 0.9 Positive: > 0.9 The CDC recommends that a positive HCV antibody result be followed up with a HCV Nucleic Acid Amplification test (628540). Performed By: #### L3100.0390, L3100.0537, L3100.0625 #### [facility] (refer to report for specific site) refer to report for address and phone number HIV - [facility] Collected: 04/28/2018 Status: F Source: OMAR 12:50 AM [facility] REPOSITORY Order Comment: Has pt arrived? Y TYPE CODE TESTS RESULT OUT OF RANGE REFERENCE UNITS LAB L3890.6005 Nonreactive Normal HIV - [facility] Non-Reactive Performed By: #### L3890.6005 #### [facility] [address] [place] [address], [id number] HEPATITIS B SURFACE Collected: 04/28/2018 Status: F Source: OMAR AG 12:50 AM [facility] REPOSITORY Order Comment: Has pt arrived? Y TYPE CODE TESTS RESULT OUT OF RANGE REFERENCE UNITS LAB L3100.0400 Negative Normal HB Negative SURF AG Result Comment: Performed at: - [facility] [id number] Audio Visual Equipment Rental Clerk: Arnoldo Sagastume PhD, Phone: [phone] Performed By: #### L3100.0390, L3100.0537, L3100.0625 #### [facility] (refer to report for specific site) refer to report for address and phone number HEP B SURFACE Collected: 04/28/2018 Status: F Source: OMAR ANTIBODIES EMP 12:50 AM [facility] REPOSITORY Order Comment: Has pt arrived? Y TYPE CODE TESTS RESULT OUT OF RANGE REFERENCE UNITS LAB L3100.0537 . Normal Hep B Reactive Alicia AB Result Comment: Non Reactive: Inconsistent with immunity, less than 10 mIU/mL Reactive: Consistent with immunity, greater than 9.9 mIU/mL Performed By: #### L3100.0390, L3100.0537, L3100.0625 #### [facility] (refer to report for specific site) refer to report for address and phone number HEPATITIS C ANTIBODIES Collected: 04/28/2018 Status: F Source: BROCTON 12:50 AM [facility] REPOSITORY Order Comment: Has pt arrived? Y TYPE CODE TESTS RESULT OUT OF RANGE REFERENCE UNITS LAB L3100.0650 0.0-0.9 s/co ratio Normal HEP C AB <0.1 Result Comment: Negative: < 0.8 Indeterminate: 0.8 - 0.9 Positive: > 0.9 The CDC recommends that a positive HCV antibody result be followed up with a HCV Nucleic Acid Amplification test (743134). Performed By: #### L3100.0390, L3100.0537, L3100.0625 #### [facility] (refer to report for specific site) refer to report for address and phone number ALLERGIES ALLERGIES DATE TYPE / CODE NAME / CODE REACTION SEVERITY SOURCE 05/12/2018 Drug No Known Unknown [facility] Allergy/4160 Allergies/F00 Hospital 85292(SNOMED [id number](RXNOR Repository CT) M) ENCOUNTERS ENCOUNTERS ADMIT/DISCHARGE ACCOUNT NUMBER ADMITTING ENCOUNTER LOCATION SOURCE CLASS 12/02/2018 [id number] [facility] ding:LAB Repository 12/02/2018 [id number] [facility] ding:EMPH Repository 10/05/2018/10/05/20 [id number] Ambulatory BBuilding:[address] Repository 10/05/2018 [id number] Ambulatory [address] [place] [address] Repository 06/02/2018 [id number] Ambulatory [facility] ding:LAB Repository 06/02/2018 [id number] Ambulatory [facility] ding:EMPH Repository 06/02/2018 [id number] [facility] ding:LAB.FUT Repository URE 05/12/2018 [id number] [facility] ding:ED Repository 04/28/2018 [id number] [facility] ding:EDREF Repository PAYERS PAYERS ENCOUNTER GUARANTOR PAYER SUBSCRIBER SOURCE 12/02/2018 Jaleel Corona Primary Insurance:[facility] [id number] Hospital [address]Sqy: [phone]) Number: Repository [phone] () [id number] Date:0549-85-40[address] [address], [place] [address]YO: CHECK WEBSITE 12/02/2018 Secondary NOT GIVENUNK [place] Insurance:SELF PAY [facility] Number: Effective Repository Date:2018-12-02 12/02/2018 Jaleelkatherine GayleJigkch035 Primary NOT GIVENUNK [address] Insurance:SELF PAY [facility] [id number]: ([phone]) Number: Effective Repository [phone] () Date:2018-12-02 10/05/2018 [facility] [id number] Repository [facility] Number: [place], [place] [id number] [address] Date:2018-10-05 [id number]: ([phone]) [id number] () Name:[facility] [address] [address], [place] [address]CL: 10/05/2018 [facility] Insurance:Medical [facility] E [facility] [id number] Repository ISABEL Number: [place], [place] [id number] [place], [place] [address]Cad: (740) Date:Plan Name:[place] [id number]: ([phone]) [phone] () 06/02/2018 Jaleel Gayle800 Primary NOT GIVENUNK [address] Insurance:SELF PAY [place] [id number]: [phone]) Number: Effective Repository [phone] () Date:2018-06-02 06/02/2018 Jaleel Kgydkm705 Primary NOT GIVENUNK [place] [address] Insurance:SELF PAY [facility] [address]Jko: (740) Number: Effective Repository [phone] (HP) Date:2018-06-02 06/02/2018 Jaleel Anaata761 Primary Insurance:[facility] Jaleel [place] E [address] [facility] [id number] Hospital [address]Dmc: (740) Number: Repository [phone] () [id number] Date:5949-64-59IT [facility] [address], [place] [address]NP: CHECK WEBSITE 06/02/2018 Secondary NOT GIVENUNK [place] Insurance:SELF PAY [facility] Number: Effective Repository Date:2018-05-28 05/12/2018 Jaleel Gayle800 Primary NOT GIVENUNK [place] [address] Insurance:SELF PAY [facility] [address]Kbf: (740) Number: Effective Repository [phone] () Date:2018-05-12 04/28/2018 Jaleel Gayle800 Primary NOT GIVENUNK [place] E [address] Insurance:SELF PAY [place] [id number]: [phone]) Number: Effective Repository [phone] () Date:2018-04-28
== END ==
PROVIDERS: Family Provider Family Medicine; PCP Family Medicine; Referring Provider Internal Medicine Endocrinology, Diabetes & Metabolism; Visit Provider Internal Medicine Endocrinology, Diabetes & Metabolism
DX: E04.2 Nontoxic multinodular goiter (principal); E23.0 Hypopituitarism
CPT/HCPCS: 36415; 80053; 84153; 84402; 84403; 84439; 84443; 84481; 85025; G0103

== ENCOUNTER → 2019-08-04 19:58 | Outpatient (CLI) | payer OTHER, SELFPAY | PROVIDERS: Family Provider Family Medicine; PCP Family Medicine; Referring Provider Nurse Practitioner Family; Visit Provider Nurse Practitioner Family | DX: R06.83 Snoring (principal); G47.9 Sleep disorder, unspecified | CPT/HCPCS: 95810 ==

== ENCOUNTER → 2019-08-15 14:11 | Outpatient (CLI) | payer OTHER, SELFPAY ==
[2019-08-15 15:04] LABS: Vitamin B12 691 pg/mL (211-911)
== END ==
PROVIDERS: Family Provider Nurse Practitioner Family; PCP Nurse Practitioner Family; Referring Provider Nurse Practitioner Family; Visit Provider Nurse Practitioner Family
DX: R41.3 Other amnesia (principal)
CPT/HCPCS: 36415; 82607

== ENCOUNTER → 2019-09-14 20:12 | Outpatient (CLI) | payer OTHER, SELFPAY | PROVIDERS: Family Provider Nurse Practitioner Family; PCP Nurse Practitioner Family; Referring Provider Nurse Practitioner Family; Visit Provider Nurse Practitioner Family | DX: G47.33 Obstructive sleep apnea (adult) (pediatric) (principal) | CPT/HCPCS: 95811 ==

== ENCOUNTER → 2019-09-22 10:57 | Outpatient (CLI) | payer OTHER, SELFPAY ==
--- NOTE | 2019-09-22 11:11 | MRI_ITS ---
STUDY: MRI BRAIN WITH AND WITHOUT CONTRAST REASON FOR EXAM: Male, 33 years old. The patient presents with a history of memory loss and word finding difficulty. TECHNIQUE: Standardized multiplanar fat and water weighted pulse sequences were obtained. IV Dotarem 22 was administered for the contrast portion of the examination. COMPARISON: MRI BRAIN-August 05, 2014 FINDINGS: Normal size of the ventricles and extra-axial spaces for the patient's age. Normal white matter tracts of the supratentorial brain. There is no evidence for recent intracranial ischemia or other cause of cytotoxic edema on diffusion weighted imaging (DWI). Normal T2* images of the brain without demonstrated susceptibility artifact. There is no demonstrated hemosiderin stain. Normal bilateral basal ganglia. Normal thalami. There is no extra-axial fluid accumulation. Normal flow voids within the major intracranial circulation suggesting patency by spin echo criteria. Normal venous enhancement. There is no enhancing intra-axial or extra-axial abnormality. Normal sella turcica, pituitary gland, infundibular stalk, optic chiasm and hypothalamus. Normal tectal plate and pineal gland. Normal midbrain, peggy and medulla. Normal cerebellum. Normal basal cisterns. Normal bilateral temporal bones. Normal bilateral internal auditory canals. No demonstrated orbital abnormality, within the constraints of a routine brain study. There is extensive mucosal inflammatory disease disease of the sphenoid sinus with a large retention cyst (sagittal T1 FLAIR series 3, is 13; axial T2 series 5, image 7, with worsening of sinusitis as compared the prior examination of August 05, 2014. There is mucosal inflammatory disease of the right anterior and posterior ethmoidal air cells and right maxillary antrum. Normal calvarium and skull base. Normal visualized soft tissue structures. Normal visualized upper cervical spine. MRI/Brain W/WO Contrast IMPRESSION: 1. Normal unenhanced and enhanced MRI of the brain. 2. Worsening of chronic sinusitis, as described above. 3. No acute, evolving or remote ischemic process. 4. No mass lesion. 5. No demyelinating disease. Electronically Signed: Taiwo Contreras DO at 13:29 EST Tel , Service support ,
== END ==
PROVIDERS: Family Provider Nurse Practitioner Family; PCP Nurse Practitioner Family; Referring Provider Nurse Practitioner Family; Visit Provider Nurse Practitioner Family
DX: R41.3 Other amnesia (principal)
CPT/HCPCS: 70553; A9575

== ENCOUNTER 2020-09-22 22:51 | Emergency (ER) | payer OTHER, SELFPAY ==
[2020-09-22 22:51] VITALS: BP 155/90; PULSE 76; RESP 18; TEMP 36.2; O2SAT 98; BMI 35.6
--- NOTE | 2020-09-22 23:04 | RAD_ITS ---
STUDY: X-RAY - RIGHT HAND REASON FOR EXAM: Male, 34 years old. Laceration to 5th digit. TECHNIQUE: 3 view(s) of the hand. COMPARISON: None. FINDINGS: Comminuted fracture of the head of the proximal phalanx of the fifth finger with significant soft tissue injury as well as likely comminuted fracture through the base of the middle phalanx. Remainder of the hand is within normal limits RAD/Hand Min 3 Views IMPRESSION: Significant injury of the fifth digit with comminuted fracture through the head of the proximal phalanx of the fifth digit and possible fracture of the base of the middle phalanx Electronically Signed: Alexis Lopes DO at 23:40 EST Tel , Service support ,
--- NOTE | 2020-09-22 23:13 | ED.VIS.GEN ---
History of Present Illness Chief Complaint: Laceration Informant: Patient Onset: Today Narrative: Right hand dominant male presents with right pinky injury shortly prior to arrival. [place] and arrow injury. No anticoagulation medications. Patient presents by private vehicle. Pain is 6 out of 10. Tetanus unknown. History of left index traumatic amputation in 2002. No allergies. Prior similar symptoms: Yes Past Medical History - Allergies and Home Meds Allergies/Adverse Reactions: Allergies No Known Allergies Allergy (Verified 05/12/18 18:52) Primary Care Physician: Shannon Colon MAINTENANCE TECHNICIAN, MAINTENANCE TECHNICIAN-C [Primary Care Provider] - Past Medical History: - - Gerd Smoking Status: Never smoker Review of Systems General: Denies: Chills, Fever, Sweats Eyes: Denies: Visual changes - bilaterally, Diplopia ENT: Denies: Rhinorrhea, Sore throat Cardiovascular: Denies: Chest pain, Palpitations Respiratory: Denies: Dyspnea, Cough, Dyspnea on exertion Gastrointestinal: Denies: Abdominal pain, Nausea, Vomiting, Diarrhea, Melena, Hematochezia Genitourinary: Denies: Dysuria, Hematuria, Frequency Musculoskeletal: Denies: Back pain, Extremity Pain Skin: Reports: Wounds. Denies: Rash Neurological: Denies: Headache, Weakness, Numbness Physical Exam Vital Signs/Narrative: Vital Signs Temp Pulse Resp BP Pulse Ox 09/22/20 22:51 97.2 F L 76 18 155/90 H 98 Inital Vital Signs reviewed: Yes General: Well nourished, Well developed, No Acute Distress Head: Normocephalic, Atraumatic Eyes: Perrl, EOMI ENT: Moist mucous membranes, No rhinorrhea Neck: Supple, Nontender Cardiovascular: Regular rate, Regular rhythm, No murmurs Respiratory: No distress, CTA bilaterally, Chest nontender Abdomen: Soft, Nontender, Nondistended, Normal bowel sounds Back: Nontender, Normal Inspection Extremities: - - Right hand pinky finger: Complex laceration dorsal aspect of the digit, there is open fracture noted with bleeding, extensor mechanism is not intact. There is visualized complete laceration of the extensor tendon dorsal aspect distal middle phalanx. There is some deformity. Skin: Normal color, No rash Neurological: Alert, Oriented x3, Cranial nerves II-XII grossly intact, Normal Strength, Normal Sensation Psychological: Normal affect, Normal Mood Diagnostic/Tx/Re-eval Abnormal Lab Results 09/22/20 09/22/20 23:05 23:05 WBC 8.4 RBC 5.16 Hgb 15.1 Hct 44.5 MCV 86.2 MCH 29.3 MCHC 33.9 RDW Std Deviation 37.2 RDW Coeff of Cassi 11.7 Plt Count 206 MPV 10.4 Immature Gran % (Auto) 0.200 Neut % (Auto) 54.8 Lymph % (Auto) 29.9 [place]aca % (Auto) 7.7 Eos % (Auto) 6.9 H Baso % (Auto) 0.5 Absolute Neuts (auto) 4.6 Absolute Lymphs (auto) 2.51 Nucleated RBC % 0 Sodium 140 Potassium 3.8 Chloride 108 H Carbon Dioxide 28.0 Anion Gap 4 L BUN 15 Creatinine 1.24 Estim Creat Clear Calc 90.25 Est GFR (MDRD) Af Amer 86 Est GFR (MDRD) Non-Af 71 BUN/Creatinine Ratio 12.1 Glucose 113 H Calcium 8.5 Clinical Impression(s) from Imaging Studies Hand X-Ray 09/22/20 23:04 IMPRESSION: Significant injury of the fifth digit with comminuted fracture through the head of the proximal phalanx of the fifth digit and possible fracture of the base of the middle phalanx Electronically Signed: Alexis Lopes DO at 23:40 EST Tel , Service support , - Medical Decision Making Patient presents clinical complex fracture laceration with extensor tendon injury dominant right pinky. Labs drawn, started on Ancef. Tetanus updated. X-ray confirms comminuted fracture distal proximal phalanx intra-articular with possible proximal middle phalanx fracture. This is open fracture. Labs are stable. Covid testing obtained for potential surgical planning. With no hand specialist present at this facility, I spoke with [facility] hand specialist Dr. Rushing, discussed patient's findings and concerns. Confirms with extensor injury comminuted fracture, this could be washed out in the ED antibiotics with loose suturing it and be seen in the office as an outpatient with him. Discussed this with the patient who understands and agrees. Wound was repaired in the ED, he was placed in an ulnar plaster splint to help with protection. He is given follow-up as an outpatient. Prescription for Keflex for 10 days and oxycodone for 5 days written as he will require pain meds for at least that amount of time to get seen as an outpatient in the office. Procedure note: Laceration repair. Verbal consent. Prior to anesthesia, he had slight decreased paresthesia dorsal ulnar aspect of the finger, other sensory areas are intact. 6 cc of bupivacaine 0.5% used for hemimetacarpal block. Wound was copiously washed with release 2 L of normal saline. Finger was straight in, flap was aligned, initial 1, 4-0 horizontal nylon suture was placed for the initial flap approximation. 4 simple 4-0 nylon sutures placed on the volar aspect with loose approximation. 3, 4-0 simple nylon sutures placed on the dorsal aspect to achieve hemostasis. Xeroform dressing was placed over the wound. 4 x 4's were placed. Curlex dressing was placed. Padding was placed over the hand and fingers, 4 inch plaster splint on the ulnar aspect. Main wrap placed to secure. Vascular intact with cap refills post splinting. Decreased sensation secondary to nerve block placed. ED Disposition - Plan for ED Patient: Disposition: Home or Assisted Living Diagnosis: Open fracture of phalanx of right little finger, complex laceration pinky finger, Extensor tendon laceration, finger, open wound Instructions: ED Fx Finger Open, ED Laceration All Closures, ED TENDON LACERATION Prescriptions: Cephalexin [Keflex] 500 mg PO Q6 #40 capsule Oxycodone HCl/Acetaminophen [Percocet 5-325 mg Tablet] 1 each PO Q6H PRN PRN 5 Days #20 tablet PRN Reason: Pain 1-10 Or Fever Referrals: Shannon Colon NP, MAINTENANCE TECHNICIAN-C [Primary Care Provider] - Additional Instructions: Call Dr. Rushing on Thursday for follow up. [phone]. Take medications as prescribed.
[2020-09-22 23:14] LABS: Absolute Lymphocyte Count 2.51 X10^3/uL (0.83-4.51); Absolute Neutrophil Count 4.6 X10^3/uL (2.0-7.7); Basophil# 0.04 X10^3/uL; Basophil% 0.5 % (0-1); Eosinophil# 0.58 X10^3/uL; Eosinophils% 6.9 % (0-5); Hematocrit 44.5 % (40-54); Hemoglobin 15.1 g/dL (13.0-16.5); Lymphocyte # 2.51 X10^3/ul (4.0); Lymphocyte % 29.9 % (19-41); Mean Corp Hgb Conc 33.9 g/dL (32-36); Mean Corpuscular Hgb 29.3 pg (27.0-32.0); Mean Corpuscular Volume 86.2 fL (80-94); Mean Platelet Vol. 10.4 fl (6.2-12.0); Monocyte# 0.65 X10^3/uL; Monocyte% 7.7 % (0-10); NRBC Flagged by Analyzer 0 % (0-5); Neutrophil % 54.8 % (47-70); Platelet Count 206 K/mm3 (150-450); RBC Distribution Width CV 11.7 % (11.6-14.6); RBC Distribution Width SD 37.2 fl (35.1-43.9); Red Blood Count 5.16 M/mm3 (4.6-6.2); White Blood Count 8.4 K/mm3 (4.4-11.0)
[2020-09-22] MEDS: fentaNYL 100 MCG/2 ML Ampul 50 MCG IV (23:14)
[2020-09-22] MEDS: Diphth,Pertuss(Acell),Tet Vac 0.5 ML Vial IM (23:17)
[2020-09-22 23:29] LABS: Anion Gap 4 (5-15); BUN 15 mg/dL (7-18); BUN/Creat Ratio 12.1 RATIO (10-20); Calcium,Total 8.5 mg/dL (8.5-10.1); Chloride 108 mmol/L (98-107); Creatinine, Serum 1.24 mg/dL (0.70-1.30); EST Glomerular Filtration Rate 71 mL/min (>60); Est Glom Filt Rate - Afr Amer 86 mL/min (>60); Estimated Creatinine Clearance 90.25 ml/min; Glucose 113 mg/dL (74-106); Potassium 3.8 mmol/L (3.5-5.1); Sodium Level 140 mmol/L (136-145)
[2020-09-22] MEDS: Cefazolin 1 GM/50 ML BAG IV (23:31)
[2020-09-22] MEDS: Bupivacaine Mpf 0.5% 30 ML VIAL INFILT (23:55)
[2020-09-23 01:52] VITALS: BP 122/87; PULSE 107; RESP 16; O2SAT 96
== END 2020-09-23 01:57 | disposition home or self-care (01) ==
PROVIDERS: Emergency Provider Emergency Medicine; PCP Nurse Practitioner Family
DX: S62.606A Fracture of unspecified phalanx of right little finger, initial encounter for closed fracture (principal); S66.329A Laceration of extensor muscle, fascia and tendon of unspecified finger at wrist and hand level, initial encounter; Y93.9 Activity, unspecified; Y92.89 Other specified places as the place of occurrence of the external cause; Y99.9 Unspecified external cause status; K21.9 Gastro-esophageal reflux disease without esophagitis; Z23 Encounter for immunization
CPT/HCPCS: 13132; 73130; 80048; 85025; 87635; 90715; 96365; 96375; 99283; J7050; A4216; U0002

== ENCOUNTER 2021-09-11 14:21 | Outpatient (CLI) | payer OTHER, SELFPAY ==
[2021-09-11] MEDS: 0.9% Saline Lock 10 ML Syringe IV (14:35)
[2021-09-11 14:37] VITALS: BP 123/85; PULSE 97; RESP 16; TEMP 36.9; O2SAT 100; BMI 35.4
[2021-09-11 15:27] VITALS: BP 124/84; PULSE 90; RESP 16; TEMP 36.8; O2SAT 98
[2021-09-11 16:05] VITALS: BP 112/59; PULSE 91; RESP 16; TEMP 36.8; O2SAT 100
== END 2021-09-11 16:08 | disposition home or self-care (01) ==
LOC: MS3OUT 14:24 → MS3 14:25
PROVIDERS: PCP Nurse Practitioner Family; Referring Provider Nurse Practitioner Adult Health; Visit Provider Nurse Practitioner Adult Health
DX: Z23 Encounter for immunization (principal); U07.1 COVID-19
CPT/HCPCS: J7050; M0245; Q0245; A4216

== ENCOUNTER 2023-01-23 18:00 | Emergency (ER) | payer OTHER, SELFPAY ==
[2023-01-23 18:01] VITALS: BP 144/89; PULSE 91; RESP 19; TEMP 36.6; O2SAT 99; BMI 34.4
--- NOTE | 2023-01-23 18:13 | EDS_ITS ---
HPI <DILCIA Noriega - Last Filed: 01/23/23 19:06> History of Present Illness Chief Complaint: Lower Extremity Injury Narrative Narrative: 37-year-old male presents with left lower extremity injury. He started a new job and has been doing a week of self-defense training. He was performing lots of punching and kicking movements. After striking a punching bag with his knee his leg was on the downswing and struck the ground and he felt a pop in the lower calf/Achilles area. He is able to ambulate but has significant pain. [facility] <DILCIA Noriega - Last Filed: 01/23/23 19:06> [facility] Medical History (Updated 01/23/23 @ 19:06 by Catrina Larsen) Amputation of left index finger Depression GERD (gastroesophageal reflux disease) Home Medications omeprazole 20 mg capsule,delayed release 40 mg PO DAILY 05/12/18 [History Last Taken Unknown] multivitamin 1 tab PO DAILY 09/11/21 [History Last Taken Unknown] Allergy/AdvReac Type Severity Reaction Status Date / Time No Known Allergies Allergy Verified 05/12/18 18:52 Social History Smoking Status: Never smoker ROS <DILCIA Noriega - Last Filed: 01/23/23 19:06> ROS ED ROS Narrative Constitutional: Negative for fever, chills, malaise. Neuro: Negative for motor/sensory dysfunction. Skin: Negative for rash, abscess, or wound. Musc: Positive for right calf/ankle pain. Heme: Negative for easy bruising, bleeding, lymphadenopathy. EXAM <DILCIA Noriega - Last Filed: 01/23/23 19:06> Physical Exam Narrative Exam Narrative: CONST: Patient sitting in no acute distress. EYES: Normal inspection. NECK: Normal inspection. RESP: No respiratory distress, CTAB. CVS: Regular rate and rhythm, no murmur, no gallop. SKIN: Color normal, no rash, warm, dry, intact. EXTREMITIES: Normal appearance, no gross trauma or deformity. Tender over lower calf. No bony tenderness, slightly limited range of motion in dorsiflexion and plantarflexion. Significantly decreased strength in DF/PF testing. Normal sensation, 2+ DP pulse. Small amount of movement of the foot with Hernandez's test. NEURO: Oriented x4. PSYCH: Normal affect. Const Vital Signs: 01/23/23 18:01 Temperature 97.9 F Temperature Source Temporal Pulse Rate 91 Respiratory Rate 19 H Blood Pressure 144/89 H Blood Pressure Mean 107 Pulse Ox 99 Oxygen Delivery Method Room Air <Dr. Fam Bautista MD - Last Filed: 01/23/23 19:19> Physical Exam Const Vital Signs: 01/23/23 18:01 Temperature 97.9 F Temperature Source Temporal Pulse Rate 91 Respiratory Rate 19 H Blood Pressure 144/89 H Blood Pressure Mean 107 Pulse Ox 99 Oxygen Delivery Method Room Air MDM <DILCIA Noriega - Last Filed: 01/23/23 19:06> MDM MDM Narrative Medical decision making narrative: Patient was doing self-defense drills and felt a pop and pain in his right lower calf. Extremity appears normal with no signs of swelling or deformity. He has slightly limited range of motion in dorsiflexion plantarflexion and significan tly decreased strength. He is most tender over the lower calf with no bony tenderness of the extremity. I do not feel an Achilles tendon defect but he does only have minimal movement with Hernandez's test. Neurovascularly intact. I am concerned he could have a calf tear versus Achilles tendon rupture. X-ray on my review shows no acute findings. Radiologist noted a and intra-articular fracture of the distal tibia anteriorly. I went and reassessed the patient and he has no anterior pain or tenderness so this is likely not the source of his symptoms. I discussed the case with on-call orthopedist, Dr. Wahl. He states its not necessary to place him in a an equinus splint and he can follow- up in the office next week. Main wrap was placed and I offered the patient crutches or prescription analgesia but he declined. He was discharged in stable condition. Radiography Diagnostic Testing: Clinical Impression(s) from Imaging Studies Ankle X-Ray 01/23/23 18:14 IMPRESSION: Minimally displaced intra-articular fracture of the distal tibia anteriorly. Electronically Signed: Yonas Balbuena MD at 18:37 EST , ED attending interpretation of the ankle shows no dislocation, I do see the area they called a fracture of the distal tibia anteriorly with no other fracture noted. <Dr. Fam Bautista MD - Last Filed: 01/23/23 19:19> MDM Radiography Diagnostic Testing: Clinical Impression(s) from Imaging Studies Ankle X-Ray 01/23/23 18:14 IMPRESSION: Minimally displaced intra-articular fracture of the distal tibia anteriorly. Electronically Signed: Yonas Balbuena MD at 18:37 EST Reading Location ID and State: [facility], [facility] / [place] Tel , Service support , Treatment and Re-Evaluation :: I have personally performed a face to face assessment of the patient and have reviewed the BIRD Note. I performed a substantive portion of the visit including all aspects of the following. My hernandez findings include: History: Right posterior calf pain. He was at a training [employer]. He did use the leg to kick in and then stepped back and felt a pop. He really cannot put pressure down on the front of his foot. No history of Achilles injury in the past. Exam: Exam shows most of his pain is actually in the mid calf area. Its not down toward the ankle or lower Achilles. Its not up high where it would typically be found with a plantaris tendon rupture. Hernandez test shows minimal if any motion of the foot. But I do not feel a defined defect in the Achilles tendon. This makes me question if this is an Achilles tendon rupture or possibly a gastrocnemius head rupture. He can plantarflex the foot somewhat but he cannot do it with any force at all. Medical Decison Making: We did do imaging of the ankle. There is a small defect noticed at the anterior tibia but he has no pain or tenderness there. I do not think this represents acute fracture. We also do not see a notable soft tissue defect in the region of the Achilles. However, plain films cannot rule in or rule out an Achilles rupture. My overall suspicion is that there is a partial or possible complete (more common) Achilles tendon rupture. We did discuss case with orthopedics. This patient will need close follow-up. He may need splinting and/or surgery. Both gastroc and Achilles injuries can heal without surgery. However, he will have discussion with orthopedics regarding best options as he is overall young and healthy. Discharge Plan Triage Chief Complaint: Lower Extremity Injury ED Midlevel Provider: Em Tirado ED Provider: Fam Bautista Dx/Rx/DC Orders Clinical Impression: Injury of left lower extremity Instructions: Achilles Tendon Rupture, ED Bandage Elastic Wrap Prescriptions: No Action omeprazole 20 MG capsule 40 mg PO DAILY multivitamin Tablet 1 tab PO DAILY Primary Care Provider: Shannon Colon NP Referrals: Carlos Alberto Wahl DO [Med Staff - Active Staff] - Shannon Colon ALUMINUM BOAT ASSEMBLY SUPERVISOR, ALUMINUM BOAT ASSEMBLY SUPERVISOR-C [Primary Care Provider] - Activity Restrictions/Additional Instructions: Rest, ice, elevate, take [id number] pain medication as needed. Call Dr. Wahl's office next week for an appointment. Disposition Disposition: Home, Self Care
--- NOTE | 2023-01-23 18:14 | RAD_ITS ---
INDICATION: Trauma, left ankle pain following injury EXAMINATION/TECHNIQUE: X-RAY - LEFT XR Ankle Min 3 Views 3 VIEWS COMPARISON: None. FINDINGS: SOFT TISSUES: No soft tissue swelling or gas. No radiopaque foreign body. BONES/JOINTS: Lateral view shows fracture of the anterior aspect of the articular surface of the tibia with less than 1 mm step off in the surface. Finding cannot be seen on the remaining 2 views. On spaces anatomically aligned. RAD/Ankle min 3 Views IMPRESSION: Minimally displaced intra-articular fracture of the distal tibia anteriorly. Electronically Signed: Yonas Balbuena MD at 18:37 EST ,
--- NOTE | 2023-01-23 18:34 | ED.RN ---
spoke with a captain at [facility]. 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
== END 2023-01-23 19:33 | disposition home or self-care (01) ==
LOC: ED 19:09
PROVIDERS: Emergency Provider Emergency Medicine; PCP Nurse Practitioner Family; Visit Provider Emergency Medicine
DX: S89.81XA Other specified injuries of right lower leg, initial encounter (principal); K21.9 Gastro-esophageal reflux disease without esophagitis; W22.8XXA Striking against or struck by other objects, initial encounter
CPT/HCPCS: 73610; 99282

== ENCOUNTER → 2025-03-09 | Outpatient (CLI) | payer OTHER, SELFPAY ==
[2025-03-09 11:03] LABS: Hematocrit 45.1 % (40-54); Hemoglobin 15.6 g/dL (13.0-16.5); Mean Corp Hgb Conc 34.6 g/dL (32-36); Mean Corpuscular Volume 83.8 fL (80-94); Mean Platelet Vol. 10.5 fl (6.2-12.0); Platelet Count 233 K/mm3 (150-450); RBC Distribution Width CV 12.3 % (11.6-14.6); RBC Distribution Width SD 36.9 fl (35.1-43.9); Red Blood Count 5.38 M/mm3 (4.6-6.2)
[2025-03-09 11:50] LABS: Cholesterol 189 mg/dL (<=200); High Density Lipoprotein 33 mg/dL; Low Density Lipoprotein Calc. 113 mg/dL; Triglycerides 215 mg/dL; Very Low Density Lipoprotein 43 mg/dL (5-40)
[2025-03-10 04:07] LABS: Insulin Level 17.3 uIU/mL (2.6-24.9)
[2025-03-10 08:09] LABS: ALB/GLOB Ratio 1.7 RATIO (0.9-2.4); AST(SGOT) 32 U/L (<=37); Alanine Aminotransfer ALT/SGPT 40 U/L (<=46); Albumin, Serum 4.4 g/dL (3.5-5.0); Alkaline Phosphatase 74 U/L (40-129); Anion Gap 12 (5-15); BUN 15 mg/dL (4-19); BUN/Creat Ratio 12.1 RATIO (10-20); Calcium,Total 9.4 mg/dL (7.6-11.0); Carbon Dioxide 23.8 mmol/L (21.0-32.0); Chloride 103 mmol/L (98-108); Creatinine, Serum 1.23 mg/dL (0.70-1.20); EST Glomerular Filtration Rate 77 (>60); Globulin 2.6 g/dL (2.2-4.2); Glucose 94 mg/dL (70-99); Potassium 4.3 mmol/L (3.3-5.1); Sodium Level 139 mmol/L (133-145); Total Bilirubin 0.36 mg/dL (0.00-1.30)
== END | disposition home or self-care (01) ==
LOC: LAB 10:26
PROVIDERS: PCP Nurse Practitioner Family; Referring Provider Nurse Practitioner Family; Visit Provider Nurse Practitioner Family
DX: Z13.1 Encounter for screening for diabetes mellitus (principal); Z13.6 Encounter for screening for cardiovascular disorders; E88.810 Metabolic syndrome
CPT/HCPCS: 36415; 80053; 80061; 83525; 85027